=== PATIENT | male | born 1980 | race Caucasian/White ===

== ENCOUNTER 2024-02-14 06:42 | Emergency (ER) | payer OTHER, SELFPAY ==
[2024-02-14 06:51] VITALS: BP 158/100
[2024-02-14 07:10] VITALS: BMI 32.2
--- NOTE | 2024-02-14 07:21 | ED.GENMED ---
History of Present Illness
General
Chief Complaint: Flank Pain
Source: patient and spouse
Time Seen by Provider: 02/14/24 07:09
Travel History
Have you had any contact with someone who has COVID-19?: No
Do you have any symptoms of coronavirus? Fever > 100 degrees, chills, cough, shortness of breath, sore throat, loss of taste or smell, muscle aches, or headache?: No
History of Present Illness
History of Present Illness:
43-year-old male with no significant past medical history presenting to the emergency department for evaluation of left flank pain that began yesterday, today much more intense accompanied with hematuria and nausea. Pain is described to be a
constant, nonradiating pressure-like sensation in the left lower part of his back with intermittent sharper bursts of pain. Denies any history of similar. Did not take anything for symptoms prior to arrival. He is otherwise denying any fevers,
chills, rigors, dysuria/urinary frequency/urgency, bowel changes or any other concerns.
Past History
Past History
ED Past Medical History: None
ED Past Surgical History: Other
Social History
Tobacco: Other (E-cigarettes)
Alcohol: Occasional
Drug: None
Personal:
Living: with family
Employment: Employed
Review of Systems
Review of Systems
All Other Systems: ROS reviewed and negative except as documented in HPI and ROS
Phy Exam
Physical Exam
Physical Exam:
GENERAL: Alert , pacing around room holding the left lower part of his back/flank
EYE: clear conjunctiva b/l
HEAD: NCAT
ENT: o/p clr, mmm.
ABDOMEN: Soft, without focal tenderness, no r/g, moderate left CVA tenderness
NEUROLOGICAL: Alert and oriented
SKIN: Warm and dry, skin intact.
MUSCULOSKELETAL: well perfused.
PSYCH: Normal and appropriate interaction.
Scores
Heart Failure Risk
Heart Failure Risk Score: Not Applicable
Heart Score for Chest Pain Patients
STEMI patient?: Not applicable
Withdrawal Assessment of Alcohol
Withdrawal Assessment Completed?: Not applicable
Course
Orders/Labs/Results
Orders:
Orders
02/14/24 07:14
Complete Blood Count/With Diff Urgent
Comprehensive Metabolic Panel Urgent
Urinalysis Reflex To Culture Urgent
Date Specimen was Collected: 02/14/24
Time Specimen was Collected: 07:00
Urine Microscopic Reflex Cult Urgent
Urine Culture Urgent
MACIE Source: U
Specimen Description:
Date Specimen was Collected: 02/14/24
Time Specimen was Collected: 07:00
02/14/24 07:21
CT Abd/pel Without Iv Or Oral Urgent
Comment:
Reason For Exam: left flank pain, hematuria, vomiting
0.9% Sodium Chloride 1000 ml [Nss] 1,000 ml IV BOLUS
Ketorolac [Toradol] 30 mg IV NOW STA
Ondansetron Injectable [Zofran] 4 mg IV NOW STA
02/14/24 07:32
CefTRIAXone [Rocephin] 1,000 mg IV NOW STA
Abnormal Lab Results
02/14/24
07:14
MPV 11.2 H fL
(7.4-10.4)
Glucose 106 H mg/dl
(70-99)
Urine Ketones Trace A
(Negative)
Ur Occult Blood Reflex 4+ A
(Negative)
Urine Nitrite (Reflex) Positive A
(Negative)
Urine Bilirubin 1+ A
(Negative)
Leukocyte Esterase Rfl Trace A
(Negative)
Urine RBC 70-80 A /HPF
(0-2)
Urine Bacteria (Reflex) Many A
(Negative)
Urine Albumin (Reflex) 1+ A
(Neg - Trace)
02/14/24 07:14
02/14/24 07:14
Vital Signs
Initial and Last Documented VS:
Initial Vital Signs
Pulse Resp BP Pulse Ox
68 24 158/100 98
02/14/24 06:51 02/14/24 06:51 02/14/24 06:51 02/14/24 06:51
Last Documented Vital Signs
Pulse Resp BP Pulse Ox
66 16 132/84 98
02/14/24 09:00 02/14/24 09:00 02/14/24 09:00 02/14/24 09:00
MDM/Problems Addressed
Differential Diagnosis Includes:
Renal/ureteral colic secondary to kidney stone, less concern for pyelonephritis or infectious etiology, musculoskeletal complication
MDM/Problems Addressed:
Otherwise healthy 43-year-old male presenting the emergency department for evaluation of sudden left-sided flank pain, hematuria and nausea. Patient did not take anything for symptoms prior to arrival. Presentation seems to be most consistent with
renal/ureteral colic. Will treat with Toradol and Zofran. IV fluids ordered. Will check labs and CT imaging. Reassessment following.
*Radiology
Radiology exam reviewed: radiology read reviewed
*Pulse Oximetry
Patient hypoxic: no
*Critical Care Note
Total Time (30-74mins, 75-104mins- exclusive of procedures): Not Applicable
Comment
Comment:
Patient's urinalysis shows nitrite positive and trace leukocytes. Will treat with [address] pending
Patient Management
Discussion with other providers: Medical Office Secretary
Escalation/DeEscalation of care consider admission/obs:
Patient CT scan shows a proximal left ureteral stone measuring 6 mm. There is mild hydronephrosis. Patient's urinalysis was nitrite positive however on differential there are only 6-10 WBCs. He is afebrile, no leukocytosis and pain is
significantly improved following IV Toradol. He was able to tolerate p.o. after IV Zofran. I notified our urologist on-call and discussed the case who feels that given patient is afebrile, no leukocytosis and pain is currently controlled can be
discharged home with close outpatient follow-up with urology on Thursday morning. Prescription for Percocet, naproxen, Flomax and cefuroxime to be sent to patient's pharmacy. Patient aware of return precautions. He does feel comfortable being
discharged home.
ED Attending Note
-
Portions of this chart may have been created with voice recognition software.� Occasional wrong word or��sound alike� substitutions may have occurred due to the inherent limitations of voice recognition software.
Discharge Plan
Departure
Patient Disposition: Home (Routine Discharge)
Date of Disposition: 02/14/24
Time of Disposition: 08:
Patient with high blood pressure during this ER visit?: Yes
Discharge Problem:
Calculus of proximal left ureter
Instructions: Renal Colic (DC)
Prescriptions:
New
naproxen 500 mg tablet
500 mg PO BID PRN (Reason: Pain) Qty: 20 0RF
oxycodone-acetaminophen [Percocet] 5-325 mg tablet
1 tab PO Q6HPRN PRN (Reason: pain) Qty: 6 0RF
tamsulosin [Flomax] 0.4 mg capsule
0.4 mg PO DAILY Qty: 15 0RF
cefuroxime axetil 500 mg tablet
500 mg PO BID 10 Days Qty: 20 0RF
Referrals:
Kevin Cooney MD [Active] - (Call for appointment - Dr. Cooney wants to see you in office Thursday)
Barbara Armstrong CRNP [Family Provider] -
Interventions
Interventions:
*Risk Screen - Suicide Last Done: 02/14/24 07:10
*General Assessment Last Done: 02/14/24 07:10
*Neglect/Abuse Screening Last Done: 02/14/24 07:10
ED- Fall Risk Assessment Last Done: 02/14/24 07:17
*ED COVID-19 Vaccine History Last Done: 02/14/24 07:10
*Nursing Disposition Last Done: 02/14/24 09:08
KR-Bgnsax-Abotsnbizy Assessment Last Done: 02/14/24 07:17
ED-Male Genitourinary Assessment Last Done: 02/14/24 07:17
Discharge Date and Time
Discharge Date/Time: 02/14/24 09:18
Print Language: GREENLANDIC
[2024-02-14] MEDS: ZOFRAN 4 MG IV (07:23)
[2024-02-14] MEDS: TORADOL 30 MG IV (07:23)
[2024-02-14 07:24] LABS: Urine Albumin 1+ (Neg - Trace); Urine Bilirubin 1+ (Negative); Urine Character Slightly Cloudy (Clear); Urine Color Amber; Urine Glucose Negative (Negative); Urine Ketone Trace (Negative); Urine Leukocyte Trace (Negative); Urine Nitrite Positive (Negative); Urine Occult Blood 4+ (Negative); Urine Specific Gravity 1.025 (<1.030); Urine Urobilinogen 1+ (Neg - 1+)
[2024-02-14 07:28] LABS: % Basophils 1.1 % (0-2); % Eosinophils 1.9 % (0-6); % Immature Granulocytes 0.5 % (0-0.5); % Lymphocytes 24.2 % (20.5-51.1); % Monocytes 7.5 % (1.7-9.3); % Neutrophils 64.8 % (42.2-75.2); Absolute Basophils 0.1 10^3/uL (0-0.2); Absolute Eosinophils 0.1 10^3/uL (0-0.7); Absolute Lymphocytes 1.6 10^3/uL (1.2-3.4); Absolute Monocytes 0.5 10^3/uL (0.1-0.6); Absolute Neutrophils 4.2 10^3/uL (1.4-6.5); Hematocrit 45.4 % (39.0-52.0); Hemoglobin 15.7 g/dL (13.0-18.0); Mean Corp Hgb Conc. 34.6 g/dL (33.0-37.0); Mean Corpuscular Hgb 30.5 pg (27.0-31.0); Mean Corpuscular Volume 88.3 fL (80.0-94.0); Mean Platelet Volume 11.2 fL (7.4-10.4); Nucleated Red Blood Cells % 0 % (-); Platelet Count 221 10^3/uL (130-400); Red Blood Cell Count 5.14 10^6/uL (4.70-6.10); Red Cell Dist. Width 12.2 % (11.5-14.5); White Blood Cell Count 6.4 10^3/uL (4.8-10.8)
[2024-02-14] MEDS: NSS 1000 IV (07:29)
[2024-02-14 07:33] LABS: Urine Squamous Cell 0-2 /LPF (Few)
[2024-02-14 07:37] LABS: Urine Red Blood Cell 70-80 /HPF (0-2)
[2024-02-14 07:38] LABS: Urine Bacteria Many (Negative)
[2024-02-14] MEDS: ROCEPHIN 1000 MG IV (07:43)
[2024-02-14 07:44] LABS: ALT (SGPT) 30 U/L (0-50); AST (SGOT) 26 U/L (17-59); Albumin 4.3 g/dl (3.5-5.0); Alkaline Phosphatase 100 U/L (38-126); Blood Urea Nitrogen 15 mg/dl (9-20); Calcium 9.5 mg/dl (8.4-10.2); Carbon Dioxide 29 mmol/L (22-30); Chloride 107 mmol/L (98-107); Estimated Creatinine Clearance 123 ml/min; Glucose 106 mg/dl (70-99); Potassium 4.7 mmol/L (3.5-5.1); Sodium 142 mmol/L (135-145); Total Bilirubin 0.3 mg/dl (0.2-1.3); Total Protein 6.9 g/dl (6.3-8.2); eGFR > 60.00
[2024-02-14 09:00] VITALS: BP 132/84
== END 2024-02-14 09:18 | disposition home or self-care (01) ==
LOC: EMR 06:42
PROVIDERS: EMERGENCY PHYSICIAN Emergency Medicine; FAMILY PHYSICIAN Nurse Practitioner Adult Health
DX: N13.2 Hydronephrosis with renal and ureteral calculous obstruction (principal); F17.290 Nicotine dependence, other tobacco product, uncomplicated
CPT/HCPCS: 99284; 96374; 96375 ×2; 96361; 74176; 80053; 81003; 81015; 85025; 87086

== ENCOUNTER → 2024-02-29 12:02 | Outpatient (REF) | payer OTHER, SELFPAY | LOC: HWRAD 12:02 | PROVIDERS: ATTENDING PHYSICIAN Specialist; FAMILY PHYSICIAN Nurse Practitioner Adult Health | DX: N20.1 Calculus of ureter (principal) | CPT/HCPCS: 74018 ==

== ENCOUNTER → 2024-03-28 09:29 | Outpatient (REF) | payer OTHER, SELFPAY | LOC: HWRAD 09:29 | PROVIDERS: ATTENDING PHYSICIAN Specialist; FAMILY PHYSICIAN Nurse Practitioner Adult Health | DX: N20.0 Calculus of kidney (principal) | CPT/HCPCS: 74018 ==

== ENCOUNTER → 2024-05-04 13:29 | Outpatient (REF) | payer OTHER, SELFPAY | LOC: HWRAD 13:29 | PROVIDERS: ATTENDING PHYSICIAN Specialist; FAMILY PHYSICIAN Nurse Practitioner Adult Health | DX: N20.1 Calculus of ureter (principal) | CPT/HCPCS: 74018 ==

== ENCOUNTER 2024-05-26 06:28 | Day surgery (SDC) | payer OTHER, SELFPAY ==
[2024-05-26] VITALS (7 sets, daily range): BP systolic 118–147; BP diastolic 80–96; BMI 32.2
[2024-05-26] MEDS: NORMOSOL-R/PLASMALYTE-A 1000 IV (08:06)
[2024-05-26] MEDS: Pyridium 200 MG PO (08:06)
[2024-05-29 23:33] LABS: Stone Analysis Mass 9 mg
== END 2024-05-26 10:46 | disposition home or self-care (01) ==
LOC: SDS 06:28
PROVIDERS: ATTENDING PHYSICIAN Specialist
PROC: 0T778DZ Dilation of Left Ureter with Intraluminal Device, Via Natural or Artificial Opening Endoscopic (ICD-10-PCS; 2024-05-26)
PROC: 0TC78ZZ Extirpation of Matter from Left Ureter, Via Natural or Artificial Opening Endoscopic (ICD-10-PCS; 2024-05-26)
DX: N20.1 Calculus of ureter (principal)
CPT/HCPCS: 52356; 74018; 76000; 82365; C2617